=== PATIENT | male | born 1955 | race Caucasian/White ===

== ENCOUNTER → 2016-12-17 | Outpatient (REF) | payer BC ==
[2016-12-17 11:59] LABS: INR 0.92
== END ==
LOC: M LABDRAW1 11:25
PROVIDERS: ATTEND Physical Medicine & Rehabilitation
DX: M48.03 Spinal stenosis, cervicothoracic region (principal)

== ENCOUNTER → 2019-06-16 | Outpatient (REF) | payer MEDICARE | LOC: M LAB REF 16:18 | PROVIDERS: ATTEND Internal Medicine Endocrinology, Diabetes & Metabolism | DX: E04.1 Nontoxic single thyroid nodule (principal) ==

== ENCOUNTER → 2020-05-10 | Outpatient (REF) | payer MEDICARE | LOC: M LAB REF 17:37 | PROVIDERS: ATTEND Dermatology | DX: C44.310 Basal cell carcinoma of skin of unspecified parts of face (principal) | CPT/HCPCS: 11102; 88305; G0463 ==

== ENCOUNTER → 2020-06-20 | Outpatient (REF) | payer MEDICARE | LOC: M LAB REF 09:33 | PROVIDERS: ATTEND Dermatology | DX: L90.5 Scar conditions and fibrosis of skin (principal); L57.8 Other skin changes due to chronic exposure to nonionizing radiation ==

== ENCOUNTER → 2022-04-08 | Outpatient (REF) | payer OTHER, MEDICARE | LOC: M SFHCDERM 17:19 | PROVIDERS: ATTEND Physician Assistant | DX: C44.612 Basal cell carcinoma of skin of right upper limb, including shoulder (principal) ==

== ENCOUNTER → 2022-07-29 | Outpatient (REF) | payer OTHER, MEDICARE | LOC: M SFHCDERM 14:05 | PROVIDERS: ATTEND Physician Assistant | DX: L57.0 Actinic keratosis (principal) ==

== ENCOUNTER → 2024-06-29 | Outpatient (REF) | payer OTHER, MEDICARE | LOC: M SFHCDERM 07:43 | PROVIDERS: ATTEND Physician Assistant | DX: D04.62 Carcinoma in situ of skin of left upper limb, including shoulder (principal) ==